=== PATIENT | female | born 1980 | race Caucasian/White ===

== ENCOUNTER 2016-11-28 00:02 | Emergency (ER) | payer OTHER, MEDICAID ==
[~2016-11-28] VITALS: Ht 172.7 cm; Wt 90.7 kg
[2016-11-28 00:22] VITALS: BP 125/83; PULSE 97; RESP 18; TEMP 98.2; O2SAT 100
--- NOTE | 2016-11-28 00:22 | NUR ---
Patient to ER bed 8 to gown for evaluation. Side rails up.
--- NOTE | 2016-11-28 00:25 | NUR ---
PT IS AOX4, C/O RIGHT WRIST PAIN WITH PAIN SCALE 7/10. PT STATED THAT SHE HAD A CONSULT AT ER FOR THE SAME REASON AND PUT A SPLINT. PT DENIES ANY TRAUMA.
--- NOTE | 2016-11-28 00:30 | NUR ---
ER Dr.DE BERGER at bedside examining patient.
[2016-11-28] MEDS ORDERED: IBUPROFEN 800 MG TABLET PO ONE (00:45)
[2016-11-28 01:00] VITALS: BP 125/83; PULSE 97; RESP 18; TEMP 98.2; O2SAT 100
--- NOTE | 2016-11-28 01:00 | NUR ---
Patient given written and verbal discharge instructions and verbalizes understanding. ER MD discussed with patient the results and treatment provided. Patient in stable condition. ID arm band removed. Rx of IBUPROFEN 800 MG given. Patient educated on pain management and to follow up with PMD. Pain Scale 0/10. Opportunity for questions provided and answered.
== END 2016-11-28 01:00 | disposition home or self-care (01) ==
LOC: SED 00:02
DX: M25.531 Pain in right wrist (principal); G89.29 Other chronic pain
CPT/HCPCS: 99283

== ENCOUNTER 2017-03-26 23:02 | Emergency (ER) | payer MEDICARE, MEDICAID ==
[~2017-03-26] VITALS: Ht 172.7 cm; Wt 95.3 kg
[2017-03-26 23:30] VITALS: BP_SYST 109
[2017-03-27 01:16] VITALS: BP_SYST 110
== END 2017-03-27 01:16 | disposition home or self-care (01) ==
LOC: SED 23:02
DX: S20.20XA Contusion of thorax, unspecified, initial encounter (principal); X58.XXXA Exposure to other specified factors, initial encounter; Y93.89 Activity, other specified; Y92.89 Other specified places as the place of occurrence of the external cause; Y99.8 Other external cause status
CPT/HCPCS: 71010; 74020-TC; 81025; 99284

== ENCOUNTER 2017-06-07 00:46 | Emergency (ER) | payer MEDICARE, MEDICAID ==
[~2017-06-07] VITALS: Ht 154.9 cm; Wt 95.3 kg
[2017-06-07 01:00] VITALS: BP_SYST 162
[2017-06-07] MEDS ORDERED: KETOROLAC TROMETHAMINE 60 MG/2 ML VIAL IM ONE (01:15)
[2017-06-07 01:45] VITALS: BP_SYST 158
== END 2017-06-07 01:45 | disposition home or self-care (01) ==
LOC: SED 00:46
DX: M25.532 Pain in left wrist (principal); F17.210 Nicotine dependence, cigarettes, uncomplicated
CPT/HCPCS: 29125; 96372; 99283; J1885

== ENCOUNTER 2017-06-26 20:05 | Emergency (ER) | payer MEDICARE, MEDICAID ==
[~2017-06-26] VITALS: Ht 172.7 cm; Wt 95.3 kg
[2017-06-26 20:05] VITALS: BP_SYST 132
--- NOTE | 2017-06-26 20:58 | NUR ---
Patient to [facility] for evaluation. Side rails up. Report given to RAMIREZ CARMONA.
--- NOTE | 2017-06-26 21:10 | NUR ---
Dr Rojas at bedside examining patient
--- NOTE | 2017-06-26 21:10 | NUR ---
Pt brought by self, A&Ox4, pt c/o L foot pain for couple days, denies trauma, VS WNL, skin pink and warm , cap refill <3.
--- NOTE | 2017-06-26 21:42 | NUR ---
Patient given written and verbal discharge instructions and verbalizes understanding. ER MD discussed with patient the results and treatment provided. Patient in stable condition. ID arm band removed. Rx of Motrin given. Patient educated on pain management and to follow up with PMD. Pain Scale 2/10 tolerable for pt. Opportunity for questions provided and answered.
[2017-06-26 21:50] VITALS: BP_SYST 132
== END 2017-06-26 21:50 | disposition home or self-care (01) ==
LOC: SED 20:05
DX: S93.692A Other sprain of left foot, initial encounter (principal); X58.XXXA Exposure to other specified factors, initial encounter; Y93.89 Activity, other specified; Y92.89 Other specified places as the place of occurrence of the external cause; Y99.8 Other external cause status
CPT/HCPCS: 81025; 99284

== ENCOUNTER 2018-07-12 21:25 | Emergency (ER) | payer MEDICARE, MEDICAID ==
[~2018-07-12] VITALS: Ht 172.7 cm; Wt 95.7 kg
[2018-07-12] MEDS ORDERED: BALANCED SALT IRRIG SOLN 15 ML IO ONE (21:26)
[2018-07-12] MEDS ORDERED: TETRACAINE (PONTOCAINE) TOPICAL 30 ML SOLUTION TP ONE (21:26)
[2018-07-12] MEDS ORDERED: FLUORESCEIN SODIUM 1 MG OPHTHALMIC STRIP OP ONE (21:26)
--- NOTE | 2018-07-12 21:26 | NUR ---
Patient taken to eye irrigation sink. Patient washed hands. Educated on use of sink and time period. Verbalized understanding.
[2018-07-12 21:39] VITALS: BP_SYST 126
--- NOTE | 2018-07-12 21:45 | NUR ---
Patient triaged and placed in waiting room. VSS and patient appears in no acute distress at this time. Accompanied by FRIEND, awaiting available bed, and MD notified of need for MSE.
--- NOTE | 2018-07-12 21:59 | NUR ---
PATIENT PLACED IN BED 4. Placed in room 4. Side rails up. Report given to DANUTA.
--- NOTE | 2018-07-12 22:38 | NUR ---
RIGHT EYE PAIN PER PATIENT FOR ONE DAY. DENIES ANY TRAUMA, IS AFRAID SOMETHING IS IN IT. NO VISION DISTURBANCE. EYE IS NOTED TO BE REDDENED.
--- NOTE | 2018-07-12 22:48 | NUR ---
DR SEO AT [facility] TO EXAMINE PATIENT
--- NOTE | 2018-07-12 23:46 | NUR ---
Patient given written and verbal discharge instructions and verbalizes understanding. ER MD discussed with patient the results and treatment provided. Patient in stable condition. ID arm band removed. Patient educated on pain management and to follow up with PMD. Pain Scale 0/10. Opportunity for questions provided and answered.
[2018-07-13 00:01] VITALS: BP_SYST 126
== END 2018-07-12 23:46 | disposition home or self-care (01) ==
LOC: SED 21:25
DX: T15.91XA Foreign body on external eye, part unspecified, right eye, initial encounter (principal); X58.XXXA Exposure to other specified factors, initial encounter; Y93.89 Activity, other specified; Y92.89 Other specified places as the place of occurrence of the external cause; Y99.8 Other external cause status
CPT/HCPCS: 99283

== ENCOUNTER 2022-05-07 20:26 | Emergency (ER) | payer MEDICAID, MEDICARE, OTHER ==
[~2022-05-07] VITALS: Ht 172.7 cm; Wt 100.7 kg
[2022-05-07 20:44] VITALS: BP_SYST 116
--- NOTE | 2022-05-07 20:47 | NUR ---
Pt to ER w/ c/o cough x 5 days and LUQ abdominal "from coughing so much" per patient. Pt states "I took 3 covid home tests the last few days and they were all negative". Pt ambulates with strong steady gait. Pt did not cough a single time during triage. Respirations even and unlabored.
--- NOTE | 2022-05-07 21:23 | NUR ---
PT WALKED FROM HOME TO ER AND PRESENTED WITH COMPLAINT OF COUGH/COLD SINCE TUESDAY. PT DENIES ANY PAIN. DID NOT PRESENT ANY SYMPTOMS OF COUGH DURING ASSESSMENT, PT WAS NON FEBRILE AND VS ARE WITHIN NORMAL LIMITS. WILL CONTINUE TO ASSES
[2022-05-07 21:26] VITALS: BP_SYST 118
--- NOTE | 2022-05-07 23:57 | NUR ---
PATIENT LEFT W/OUT BEING SEEN
== END 2022-05-07 23:57 | disposition left against medical advice (07) ==
LOC: SED 20:26
DX: R05.9 Cough, unspecified (principal); R10.12 Left upper quadrant pain; Z53.21 Procedure and treatment not carried out due to patient leaving prior to being seen by health care provider